=== PATIENT | male | born 1945 | race Caucasian/White ===

== ENCOUNTER 2021-11-03 05:48 | Inpatient (IN) | payer OTHER ==
[2021-11-02 13:17] LABS: COVID AG,FIA SOURCE NASAL SWAB
[~2021-11-03] VITALS: Ht 170.2 cm; Wt 84.5 kg
[~2021-11-03 05:48] MED LIST: ACET-2247 PO; LOSA-382 PO; RINGERS SOLUTION,LACTATED 1,000 ML IV ONE; SIMV-260 PO; SODIUM CHLORIDE 0.9% 0 ML ONE
[2021-11-03] MEDS ORDERED: BUPIVACAINE HCL/PF 0.5% 30 ML VIAL ONE (06:41)
[2021-11-03] MEDS ORDERED: SODIUM CL IRRIG SOLN BAG 3,000 ML IRRIG ONE (06:42)
[2021-11-03] MEDS ORDERED: TRANEXAMIC ACID 1,000 MG in DEXTROSE 5%-WATER 50 ML IV ONE (06:45)
[2021-11-03] MEDS ORDERED: RINGERS SOLUTION,LACTATED 1,000 ML IV ONE ×2 (06:45→09:21)
[2021-11-03] MEDS ORDERED: BUPIVACAINE LIPOSOME/PF 1.3%-13.3MG/ML SUSPENSION 20 ML VIAL INJ ONE (06:45)
[2021-11-03] MEDS ORDERED: VANCOMYCIN HCL 1 GM/VIAL ONE (07:03)
[2021-11-03] MEDS ORDERED: BUPIVACAINE HCL/PF 0.5% 30 ML VIAL PERC ONE (07:17)
[2021-11-03] MEDS ORDERED: VANCOMYCIN HCL 1 GM/VIAL IRRIG ONE (07:17)
[2021-11-03] MEDS ORDERED: ACETAMINOPHEN 1000 MG/ISO-OSM 100 ML IV ONE (07:19)
[2021-11-03] MEDS ORDERED: FentaNYL CITRATE PF 100 MCG/2 ML VIAL IVP PRN (08:15)
[2021-11-03] MEDS ORDERED: SODIUM CHLORIDE 0.9% 1,000 ML ONE (08:58)
[2021-11-03] MEDS ORDERED: ONDANSETRON HCL 4 MG/2 ML VIAL IVP PRN ×2 (09:15→09:45)
[2021-11-03] MEDS ORDERED: CYCLOBENZAPRINE HCL 10 MG TABLET PO PRN (09:15)
[2021-11-03] MEDS ORDERED: BISACODYL 10 MG RECTAL RECTAL SUPPOSITORY PR PRN (09:45)
[2021-11-03] MEDS ORDERED: DiphenhydrAMINE HCL 50 MG/ML VIAL IVP PRN (09:45)
[2021-11-03] MEDS ORDERED: MAG HYDROX/AL HYDROX/SIMETH 30 ML SUSP UDCUP PO PRN (09:45)
[2021-11-03] MEDS ORDERED: HYDROmorphone 2 MG/ML VIAL ONE (09:55)
[2021-11-03] MEDS: HYDROmorphone 2 MG/ML VIAL IVP PRN ×4 (09:57→13:14)
[2021-11-03] MEDS ORDERED: CELECOXIB 200 MG CAPSULE PO ONE (10:00)
[2021-11-03] MEDS: SODIUM CHLORIDE 0.9% 1,000 ML IV SCH ×2 (11:26→23:25)
[2021-11-03 11:42] VITALS: BP 157/85
[2021-11-03] MEDS ORDERED: LOSARTAN POTASSIUM 50 MG TABLET PO ONE (13:00)
[2021-11-03] MEDS: CeFAZolin 2 GM/DEXTROSE 50 ML IV SCH ×2 (14:34→21:02)
[2021-11-03 16:02] VITALS: BP 147/72
[2021-11-03] MEDS: ACETAMINOPHEN 1000 MG/ISO-OSM 100 ML IV SCH ×2 (16:17→23:26)
[2021-11-03] MEDS: BENZOCAINE/MENTHOL LOZENGE PO PRN (18:27)
[2021-11-03 19:42] VITALS: BP 139/76
[2021-11-03] MEDS: OXYGEN THERAPY IH SCH (20:00)
[2021-11-03] MEDS: DOCUSATE SODIUM 100 MG CAPSULE PO SCH (21:00)
[2021-11-03] MEDS: FAMOTIDINE 20 MG TABLET PO SCH (21:02)
[2021-11-03] MEDS: SIMVASTATIN 20 MG TABLET PO SCH (22:10)
[2021-11-04 04:23] VITALS: BP 157/83
[2021-11-04] MEDS ORDERED: ROCURONIUM BROMIDE 10 MG/ML 5 ML VIAL IVP ONE (06:23)
[2021-11-04] MEDS ORDERED: PROPOFOL 1% 20 ML VIAL IVP ONE (06:23)
[2021-11-04] MEDS ORDERED: LIDOCAINE/PF 2% 5 ML VIAL IM ONE (06:23)
[2021-11-04] MEDS ORDERED: FentaNYL CITRATE PF 100 MCG/2 ML VIAL IVP ONE (06:23)
[2021-11-04] MEDS ORDERED: MIDAZOLAM HCL 2 MG/2 ML VIAL IVP ONE (06:23)
[2021-11-04] MEDS ORDERED: HYDROmorphone 2 MG/ML VIAL IVP ONE (06:23)
[2021-11-04] MEDS ORDERED: ONDANSETRON HCL 4 MG/2 ML VIAL IVP ONE (06:23)
[2021-11-04 07:25] LABS: BASOPHILS % (AUTO) 0.5 % (0.0-2.0); EOSINOPHILS % (AUTO) 0.9 % (1.0-6.0); HEMOGLOBIN 13.3 g/dL (13.5-17.5); LYMPHOCYTES # (AUTO) 1.8 K/uL (1.0-4.8); LYMPHOCYTES % (AUTO) 15.9 % (22.0-44.0); MEAN CORPUSCULAR HEMOGLOBIN 32.2 pg (26.0-34.0); MEAN CORPUSCULAR HGB CONC 34.1 G/dL (31.0-37.0); MEAN CORPUSCULAR VOLUME 95 fL (80-100); MONOCYTES # (AUTO) 1.8 K/uL (0.1-1.0); MONOCYTES % (AUTO) 16.1 % (2.0-9.0); NEUTROPHILS # (AUTO) 7.4 K/uL (1.8-7.7); NEUTROPHILS % (AUTO) 66.6 % (40.0-70.0); PLATELET COUNT (AUTO) 158 K/uL (150-450); RED BLOOD CELL COUNT(AUTO) 4.12 MIL/uL (4.50-5.90); RED CELL DISTRIBUTION WIDTH 13.9 % (11.5-14.5)
[2021-11-04 07:50] LABS: ANION GAP 9 mmol/L (8-16); CALCIUM, TOTAL 8.5 mg/dL (8.8-10.5); CARBON DIOXIDE 25 mmol/L (22-29); CHLORIDE 105 mmol/L (98-107); CREATININE 1.01 mg/dL (0.60-1.30); GLUCOSE,RANDOM 129 mg/dL (70-110); SODIUM SERUM 139 mmol/L (136-145); UREA NITROGEN, BLOOD 12 mg/dL (7-18)
[2021-11-04] MEDS: OXYGEN THERAPY IH SCH ×2 (07:51→20:00)
[2021-11-04] MEDS: BENZOCAINE/MENTHOL LOZENGE PO PRN (07:52)
[2021-11-04 08:04] LABS: GLOMERULAR FILTR. RATE CALC > 60 mL/min (>60)
[2021-11-04 08:34] VITALS: BP 170/88
[2021-11-04] MEDS: FAMOTIDINE 20 MG TABLET PO SCH ×2 (08:42→20:30)
[2021-11-04] MEDS: DOCUSATE SODIUM 100 MG CAPSULE PO SCH ×3 (08:42→20:34)
[2021-11-04] MEDS: ASPIRIN 81 MG CHEWABLE TABLET PO SCH ×2 (08:42→20:30)
[2021-11-04] MEDS: LOSARTAN POTASSIUM 50 MG TABLET PO SCH (08:42)
[2021-11-04] MEDS: OxyCODONE HCL/ACETAMINOPHEN 10-325 MG TABLET PO PRN (08:49)
[2021-11-04] MEDS ORDERED: CloNIDine HCL 0.1 MG TABLET PO ONE (10:00)
[2021-11-04 10:14] VITALS: BP 184/86
[2021-11-04] MEDS: SODIUM CHLORIDE 0.9% 1,000 ML IV SCH (12:11)
[2021-11-04 12:14] VITALS: BP 138/76
[2021-11-04 15:46] VITALS: BP 146/87
[2021-11-04 20:10] VITALS: BP 134/65
[2021-11-04] MEDS: SIMVASTATIN 20 MG TABLET PO SCH (20:30)
[2021-11-05] MEDS: SODIUM CHLORIDE 0.9% 1,000 ML IV SCH (00:17)
[2021-11-05 04:38] VITALS: BP 153/73
[2021-11-05] MEDS: LOSARTAN POTASSIUM 50 MG TABLET PO SCH (07:45)
[2021-11-05] MEDS: ASPIRIN 81 MG CHEWABLE TABLET PO SCH ×2 (07:45→20:32)
[2021-11-05] MEDS: DOCUSATE SODIUM 100 MG CAPSULE PO SCH ×2 (07:45→20:33)
[2021-11-05] MEDS: FAMOTIDINE 20 MG TABLET PO SCH ×2 (07:45→20:32)
[2021-11-05] MEDS: OxyCODONE HCL/ACETAMINOPHEN 10-325 MG TABLET PO PRN ×3 (07:45→18:21)
[2021-11-05] MEDS: OXYGEN THERAPY IH SCH ×2 (07:48→20:00)
[2021-11-05 08:45] VITALS: BP 140/74
[2021-11-05 09:10] LABS: BASOPHILS % (AUTO) 0.4 % (0.0-2.0); EOSINOPHILS % (AUTO) 0.7 % (1.0-6.0); HEMATOCRIT 37.8 % (41-53); HEMOGLOBIN 12.9 g/dL (13.5-17.5); LYMPHOCYTES # (AUTO) 1.6 K/uL (1.0-4.8); LYMPHOCYTES % (AUTO) 13.8 % (22.0-44.0); MEAN CORPUSCULAR HEMOGLOBIN 32.4 pg (26.0-34.0); MEAN CORPUSCULAR HGB CONC 34.1 G/dL (31.0-37.0); MEAN CORPUSCULAR VOLUME 95 fL (80-100); MONOCYTES # (AUTO) 1.6 K/uL (0.1-1.0); MONOCYTES % (AUTO) 13.9 % (2.0-9.0); NEUTROPHILS # (AUTO) 8.4 K/uL (1.8-7.7); NEUTROPHILS % (AUTO) 71.2 % (40.0-70.0); PLATELET COUNT (AUTO) 158 K/uL (150-450); RED BLOOD CELL COUNT(AUTO) 3.97 MIL/uL (4.50-5.90)
[2021-11-05 20:00] VITALS: BP 109/54
[2021-11-05] MEDS: SIMVASTATIN 20 MG TABLET PO SCH (20:32)
[2021-11-06] VITALS (9 sets, daily range): BP systolic 118–194; BP diastolic 63–101
[2021-11-06 07:29] LABS: BASOPHILS % (AUTO) 0.4 % (0.0-2.0); EOSINOPHILS % (AUTO) 1.7 % (1.0-6.0); HEMATOCRIT 35.7 % (41-53); HEMOGLOBIN 12.2 g/dL (13.5-17.5); LYMPHOCYTES # (AUTO) 1.5 K/uL (1.0-4.8); LYMPHOCYTES % (AUTO) 16.4 % (22.0-44.0); MEAN CORPUSCULAR HEMOGLOBIN 32.5 pg (26.0-34.0); MEAN CORPUSCULAR HGB CONC 34.3 G/dL (31.0-37.0); MEAN CORPUSCULAR VOLUME 95 fL (80-100); MONOCYTES # (AUTO) 1.3 K/uL (0.1-1.0); MONOCYTES % (AUTO) 13.5 % (2.0-9.0); NEUTROPHILS # (AUTO) 6.4 K/uL (1.8-7.7); PLATELET COUNT (AUTO) 160 K/uL (150-450); RED BLOOD CELL COUNT(AUTO) 3.76 MIL/uL (4.50-5.90)
[2021-11-06] MEDS: OXYGEN THERAPY IH SCH (08:00)
[2021-11-06] MEDS: ASPIRIN 81 MG CHEWABLE TABLET PO SCH (08:36)
[2021-11-06] MEDS: FAMOTIDINE 20 MG TABLET PO SCH (08:36)
[2021-11-06] MEDS: LOSARTAN POTASSIUM 50 MG TABLET PO SCH (08:36)
[2021-11-06] MEDS: DOCUSATE SODIUM 100 MG CAPSULE PO SCH (08:36)
[2021-11-06] MEDS: OxyCODONE HCL/ACETAMINOPHEN 10-325 MG TABLET PO PRN (08:38)
[2021-11-06] MEDS ORDERED: ENALAPRILAT DIHYDRATE 1.25 MG/ML VIAL IVP ONE (18:00)
[2021-11-06] MEDS ORDERED: CloNIDine HCL 0.1 MG TABLET PO ONE (19:15)
[2021-11-06] MEDS ORDERED: CloNIDine HCL 0.1 MG TABLET PO PRN (19:15)
[2021-11-07] MEDS ORDERED: HydrALAZINE HCL 25 MG TABLET PO SCH
== END 2021-11-06 20:22 | DRG 470 ==
LOC: 6N 05:48 → 4E 15:48
PROVIDERS: ADMIT Orthopaedic Surgery; ATTEND Orthopaedic Surgery
PROC: 0SR90JZ Replacement of Right Hip Joint with Synthetic Substitute, Open Approach (ICD-10-PCS; principal; 2021-11-03 07:35)
DX: M16.11 Unilateral primary osteoarthritis, right hip (principal); I10 Essential (primary) hypertension; E78.5 Hyperlipidemia, unspecified; Z96.642 Presence of left artificial hip joint; Z20.822 Contact with and (suspected) exposure to COVID-19
CPT/HCPCS: 72170; 80048; 85025; 87081; 88300; 93005; 97110; 97116; 97162; 97165; 97530; 97535; C9290; G0238; G0378; J0131; J0690; J1170; J2250; J2405; J2704; J3010; J3370; J3490; J7030; J7060; J7120